=== PATIENT | female | born 1965 | race Caucasian/White ===

== ENCOUNTER 2020-05-30 08:17 | Outpatient (CLI) | payer OTHER | END 2020-05-30 08:18 | disposition home or self-care (01) | LOC: CSHWCC 08:17 | PROVIDERS: ATTEND Nurse Practitioner Family | DX: I87.2 Venous insufficiency (chronic) (peripheral) (principal); E11.621 Type 2 diabetes mellitus with foot ulcer; L97.422 Non-pressure chronic ulcer of left heel and midfoot with fat layer exposed; L97.522 Non-pressure chronic ulcer of other part of left foot with fat layer exposed; E11.51 Type 2 diabetes mellitus with diabetic peripheral angiopathy without gangrene; I70.203 Unspecified atherosclerosis of native arteries of extremities, bilateral legs; L03.116 Cellulitis of left lower limb; E78.5 Hyperlipidemia, unspecified | CPT/HCPCS: 11042; 99213; G0463 ==

== ENCOUNTER 2020-06-12 09:44 | Outpatient (CLI) | payer OTHER | END 2020-06-12 09:45 | disposition home or self-care (01) | LOC: CSHWCC 09:44 | PROVIDERS: ATTEND Nurse Practitioner Family | DX: I87.2 Venous insufficiency (chronic) (peripheral) (principal); E11.621 Type 2 diabetes mellitus with foot ulcer; L97.422 Non-pressure chronic ulcer of left heel and midfoot with fat layer exposed; L97.522 Non-pressure chronic ulcer of other part of left foot with fat layer exposed; E11.51 Type 2 diabetes mellitus with diabetic peripheral angiopathy without gangrene; I70.203 Unspecified atherosclerosis of native arteries of extremities, bilateral legs; L03.116 Cellulitis of left lower limb; E78.5 Hyperlipidemia, unspecified; I10 Essential (primary) hypertension | CPT/HCPCS: 99213; G0463 ==

== ENCOUNTER 2020-06-26 08:11 | Outpatient (CLI) | payer OTHER | END 2020-06-26 08:12 | disposition home or self-care (01) | LOC: CSHWCC 08:11 | PROVIDERS: ATTEND Nurse Practitioner Family | DX: E11.621 Type 2 diabetes mellitus with foot ulcer (principal); L97.422 Non-pressure chronic ulcer of left heel and midfoot with fat layer exposed; L97.522 Non-pressure chronic ulcer of other part of left foot with fat layer exposed; E78.5 Hyperlipidemia, unspecified; I10 Essential (primary) hypertension; I70.203 Unspecified atherosclerosis of native arteries of extremities, bilateral legs; I87.2 Venous insufficiency (chronic) (peripheral); L03.116 Cellulitis of left lower limb | CPT/HCPCS: 99213; G0463 ==

== ENCOUNTER 2020-07-10 11:32 | Outpatient (CLI) | payer OTHER | END 2020-07-10 11:33 | disposition home or self-care (01) | LOC: CSHWCC 11:32 | PROVIDERS: ATTEND Nurse Practitioner Family | DX: E11.621 Type 2 diabetes mellitus with foot ulcer (principal); L97.422 Non-pressure chronic ulcer of left heel and midfoot with fat layer exposed; L97.522 Non-pressure chronic ulcer of other part of left foot with fat layer exposed; E78.5 Hyperlipidemia, unspecified; I10 Essential (primary) hypertension; I70.203 Unspecified atherosclerosis of native arteries of extremities, bilateral legs; I87.2 Venous insufficiency (chronic) (peripheral); L03.116 Cellulitis of left lower limb | CPT/HCPCS: 99213; G0463 ==

== ENCOUNTER 2022-04-07 12:31 | Outpatient (CLI) | payer OTHER | END 2022-04-07 12:32 | disposition home or self-care (01) | LOC: CSHRAD 12:31 | PROVIDERS: ATTEND Student in an Organized Health Care Education/Training Program | DX: M25.552 Pain in left hip (principal); M16.0 Bilateral primary osteoarthritis of hip | CPT/HCPCS: 72170 ==